=== PATIENT | female | born 1975 | race Caucasian/White ===

== ENCOUNTER 2020-07-22 10:32 | Emergency (ER) | payer OTHER ==
[~2020-07-22] VITALS: Ht 157.5 cm; Wt 77.0 kg
[2020-07-22] MEDS ORDERED: SODIUM CHLORIDE 0.9% 1,000 ML IV ONE (10:45)
[2020-07-22] MEDS ORDERED: ONDANSETRON HCL 4MG/2ML INJ IV STA (10:45)
[2020-07-22] MEDS ORDERED: PANTOPRAZOLE SODIUM 40 MG/VIAL IV STA (10:45)
[2020-07-22 11:34] LABS: BASOPHILS % 0.5 % (0.0-2.0); EOSINOPHILS % 0.7 % (0.0-5.0); HEMATOCRIT. 48.9 % (36.0-48.0); HEMOGLOBIN. 16.5 g/dL (12.0-16.0); MEAN CORPUSCULAR HEMOGLOBIN 30.5 pg (28.0-32.0); MEAN CORPUSCULAR VOLUME 90.4 fL (81.0-99.0); MEAN PLATELET VOLUME 7.9 fl (7.4-10.4); NEUTROPHILS % 85.8 % (40.0-76.0); PLATELET 446 x1000/uL (130-400); RED CELL DISTRIBUTION WIDTH 13.7 % (11.6-14.6)
[2020-07-22 11:43] LABS: CHLORIDE 107 mEq/L (98-107)
[2020-07-22 11:45] LABS: INR 0.9; PROTHROMBIN TIME 10.2 sec (9.6-11.0)
[2020-07-22 12:13] LABS: CLARITY URINE CLEAR (CLEAR); COLOR URINE YELLOW (YELLOW); KETONES URINE 1+ (NEGATIVE); LEUKOCYTE ESTERASE URINE 1+ (NEGATIVE); NITRITE URINE POSITIVE (NEGATIVE); OCCULT BLOOD URINE TRACE (NEGATIVE); PROTEIN URINE TRACE (NEGATIVE); UROBILINOGEN URINE 0.2 E.U./dL (0.2-1.0)
[2020-07-22 12:59] LABS: *AMPHETAMINES SCREEN URINE NEGATIVE (NEGATIVE); *BARBITURATES SCREEN URINE NEGATIVE (NEGATIVE); *COCAINE SCREEN URINE NEGATIVE (NEGATIVE); METHADONE URINE SCREEN NEGATIVE (NEGATIVE); OPIATES URINE SCREEN NEGATIVE (NEGATIVE); PHENCYCLIDINE URINE SCREEN NEGATIVE (NEGATIVE)
[2020-07-22] MEDS ORDERED: CEFTRIAXONE SODIUM 1 G/VIAL IV ONE (13:00)
[2020-07-22 13:35] LABS: *BENZODIAZEPINES SCREEN URINE PRESUMTIVE POSITIVE (NEGATIVE); CANNABINOID URINE SCREEN PRESUMTIVE POSITIVE (NEGATIVE)
[2020-07-22 13:55] VITALS: BP 120/64
[2020-07-22] MEDS ORDERED: CEPH250C2 MT (14:16)
[2020-07-22] MEDS ORDERED: PROT40 PO (14:16)
[2020-07-22] MEDS ORDERED: FAMO-135 MT (14:16)
[2020-07-22] MEDS ORDERED: ONDA4TAB5 MT (14:16)
== END 2020-07-22 14:52 | disposition home or self-care (01) ==
LOC: ER 10:54
DX: N39.0 Urinary tract infection, site not specified (principal); R10.13 Epigastric pain; J45.909 Unspecified asthma, uncomplicated; F17.200 Nicotine dependence, unspecified, uncomplicated; K50.90 Crohn's disease, unspecified, without complications; Z88.2 Allergy status to sulfonamides; Z91.013 Allergy to seafood
CPT/HCPCS: 36415; 80053; 80305; 81003; 82962; 83690; 85025; 85610; 87086; 93005; 96361; 96374; 96375; 99284; C9113; J0696; J2405; J7030; Z7610